=== PATIENT | male | born 1965 | race Caucasian/White ===

== ENCOUNTER → 2018-08-06 | Outpatient (CLI) | payer OTHER ==
[2015-12-04 08:59] VITALS: BP 130/92
[~2018-08-06] MED LIST: LISI2.5T PO; NAPR-514 PO; TAMS0.4C97 PO
--- NOTE | 2018-08-06 08:55 | RAD ---
EXAM: Abdomen sonogram complete. HISTORY: Elevated liver function laboratory values. TECHNIQUE: Sonographic imaging of the abdomen was performed. COMPARISON: None. FINDINGS: The liver is normal in size. There is hepatic steatosis. The common bile duct is minimally dilated for patient age, measuring 6 mm. The gallbladder is unremarkable. The right kidney measures 11.4 cm [id number]. The left kidney measures 12.5 cm [id number]. There is mild right hydronephrosis. There are echogenic foci within the left kidney with posterior shadowing likely due to nonobstructing stones, the largest of which measures 5 mm. The pancreas, spleen, aorta and inferior vena cava are unremarkable. IMPRESSION: 1. Hepatic steatosis. 2. Mild right hydronephrosis. 3. Echogenic foci within the left kidney likely due to nonobstructing stones. 4. Minimally dilated common bile duct for patient age. Electronically signed by: Katherine Bravo MD (08/06/2018 8:52 AM) [id number]
== END | disposition home or self-care (01) ==
LOC: US 07:28
PROVIDERS: ATTEND Family Medicine
DX: K76.0 Fatty (change of) liver, not elsewhere classified (principal); K83.8 Other specified diseases of biliary tract; N13.39 Other hydronephrosis
CPT/HCPCS: 76700

== ENCOUNTER → 2018-10-27 | Outpatient (CLI) | payer OTHER ==
[2015-12-04 08:59] VITALS: BP 130/92
--- NOTE | 2018-10-27 15:46 | RAD ---
Examination: CT of the abdomen pelvis without contrast HISTORY: History of right flank pain, hematuria COMPARISON: 10/27/2015 TECHNIQUE: Axial CT images of the abdomen pelvis were performed without contrast. Coronal sagittal reformats are performed Exposure: One or more of the following individualized dose reduction techniques were utilized for this examination: 1. Automated exposure control 2. Adjustment of the mA and/or kV according to patient size 3. Use of iterative reconstruction technique FINDINGS: The visualized bibasilar lungs are clear. Coronary artery calcifications. No evidence of free air identified in the abdomen. The evaluation of solid organs is limited lack of IV contrast. Evaluation of bowel is limited due to lack of oral contrast. There is mild diffuse decreased attenuation noted throughout the liver likely likely hepatic steatosis. The visualized spleen, adrenals grossly appears unremarkable. The stomach is mildly distended. The visualized pancreas grossly appears unremarkable. The small bowel is nondilated. Feces and gas noted in the colon. Few sigmoid colon diverticulosis identified. The appendix is normal. Numerous bilateral intrarenal collecting system calculi identified with the largest measuring 6 mm in the left kidney. Severe right-sided hydronephrosis and hydroureter identified with few ureteral calculi in the distal right ureter just proximal to the ureterovesical junction with the largest measuring 1 cm. Minimal prominent distal left ureter. No obstructing radiopaque left ureteral calculus. Urinary bladder is mildly distended Mild enlarged prostate gland with central prostatic calcifications Moderate degenerative changes lumbar spine. There is mild compression change of L1 vertebral body similar to prior exam. IMPRESSION: 1. Severe right-sided hydronephrosis and hydroureter identified with few ureteral calculi in the distal right ureter just proximal to the right ureterovesical junction with the largest measuring 1 cm. 2. Numerous bilateral intrarenal collecting system calculi. 3. Hepatic steatosis. Electronically signed by: Dionte Lazo MD (10/27/2018 3:42 PM) [id number]
== END | disposition home or self-care (01) ==
LOC: CT 15:08
PROVIDERS: ATTEND Family Medicine
DX: N23 Unspecified renal colic (principal); I25.10 Atherosclerotic heart disease of native coronary artery without angina pectoris; K31.89 Other diseases of stomach and duodenum; K57.30 Diverticulosis of large intestine without perforation or abscess without bleeding; N13.2 Hydronephrosis with renal and ureteral calculous obstruction; N13.4 Hydroureter; K76.0 Fatty (change of) liver, not elsewhere classified; N40.0 Benign prostatic hyperplasia without lower urinary tract symptoms
CPT/HCPCS: 74176

== ENCOUNTER → 2018-11-02 | Outpatient (CLI) | payer OTHER ==
[2015-12-04 08:59] VITALS: BP 130/92
--- NOTE | 2018-11-02 17:35 | RAD ---
KUB, 11/02/2018: HISTORY: Kidney stone The abdominal gas pattern is unremarkable. The kidneys are partially obscured by overlying bowel. Numerous intrarenal calculi are present, more so on the left. There is a 1 cm irregular radiopacity projected over the right side of the pelvis compatible with the patient's known calculus or cluster of calculi in the distal right ureter delineated on the 10/27/2018 CT study. It is unchanged in location. There is no evidence organomegaly. Moderate scattered degenerative changes are present in the spine. IMPRESSION: 1. Bilateral intrarenal calculi. 2. Unchanged calculus or cluster of calculi in the distal right ureter near the ureterovesical junction. Electronically signed by: Nikolay Mccall MD (11/02/2018 5:31 PM) [facility]
== END | disposition home or self-care (01) ==
LOC: RAD 09:40
PROVIDERS: ATTEND Urology
DX: N20.0 Calculus of kidney (principal)
CPT/HCPCS: 74018

== ENCOUNTER → 2018-11-30 | Outpatient (CLI) | payer OTHER ==
[2015-12-04 08:59] VITALS: BP 130/92
--- NOTE | 2018-11-30 12:29 | RAD ---
KUB, 11/30/2018: HISTORY: Right-sided kidney stone Comparison is made to a study from 11/02/2018. Multiple bilateral intrarenal calculi are again visualized, more numerous on the left. There is an unchanged 1 cm coarse calcification projected over the right side of the lower pelvis which has been thought to represent a calculus or cluster of calculi lodged in the distal right ureter near the ureterovesical junction. There are several other lower pelvic calcifications probably represent a combination of phleboliths and prostatic calcifications. The abdominal gas pattern is unremarkable. IMPRESSION: No significant change since 11/02/2018. Electronically signed by: Nikolay Mccall MD (11/30/2018 12:25 PM) [facility]
== END | disposition home or self-care (01) ==
LOC: RAD 09:13
PROVIDERS: ATTEND Urology
DX: N20.2 Calculus of kidney with calculus of ureter (principal)
CPT/HCPCS: 74018

== ENCOUNTER → 2019-08-11 | Outpatient (CLI) | payer OTHER ==
[2015-12-04 08:59] VITALS: BP 130/92
--- NOTE | 2019-08-11 10:43 | RAD ---
EXAM: Abdomen sonogram. HISTORY: Abnormal liver function laboratory values. TECHNIQUE: Sonographic imaging of the abdomen was performed. COMPARISON: CT dated 10/27/2018. FINDINGS: The liver is normal in size. There is hepatic steatosis. No focal hepatic lesion is seen. The common bile duct is normal in caliber. The gallbladder, pancreas, spleen, aorta, inferior vena cava and kidneys are unremarkable. IMPRESSION: Hepatic steatosis. Electronically signed by: Katherine Bravo MD (08/11/2019 10:41 AM) [facility]
== END | disposition home or self-care (01) ==
LOC: US 09:20
PROVIDERS: ATTEND Internal Medicine Gastroenterology
DX: K76.0 Fatty (change of) liver, not elsewhere classified (principal)
CPT/HCPCS: 76700

== ENCOUNTER → 2020-10-27 | Outpatient (CLI) | payer OTHER ==
[2015-12-04 08:59] VITALS: BP 130/92
--- NOTE | 2020-10-27 08:36 | RAD ---
EXAM: Abdomen and pelvis CT without intravenous contrast. HISTORY: Pain and hematuria. TECHNIQUE: Computed tomographic images of the abdomen and pelvis were obtained without contrast. Mult iplanar reformatting was performed. *One or more of the following individualized dose reduction techniques were utilized for this examina tion: 1. Automated exposure control. 2. Adjustment of the mA and/or kV according to patient size. 3. Use of iterative reconstruction technique. COMPARISON: 10/27/2018. FINDINGS: Evaluation of the lower thorax demonstrates no infiltrate or pleural effusion. There are mu ltiple chronic rib fractures. There is lingular atelectasis or scarring. There is hepatomegaly and he patic steatosis. The gallbladder and pancreas are unremarkable. There is a splenule adjacent to an ot herwise unremarkable spleen. The adrenal glands are unremarkable. There are multiple enlarged lymph n odes within the geo hepatis, largest which measures 2.2 cm in long axis. There is a prominent renal collecting system without tonya hydronephrosis. There is dilatation of the mid to distal left ureter possibly due to peristalsis. There are multiple nonobstructing bilateral r enal stones, the largest of which measures 7 mm within the mid zone of the left kidney. No ureteral o r bladder stone is seen. There is no appendicitis. There is colonic diverticulosis. There is no evidence of diverticulitis. Th ere are calcifications within a prominent prostate. There is aortic and aortic branch vessel atherosc lerosis. There is a small fat-containing left inguinal hernia. There is a moderate chronic L4 garry jennifer fracture. There is no acute or suspicious osseous lesion. IMPRESSION: 1. Extensive bilateral nephrolithiasis. There is no tonya hydronephrosis or evidence of an obstructin g renal or ureteral stone. 2. Thyromegaly and hepatic steatosis. 3. Enlarged periportal lymph nodes, stable compared to the prior study and likely reactive given the setting of hepatic steatosis. 4. Colonic diverticulosis. Electronically signed by: Katherine Bravo MD (10/27/2020 8:33 AM) [id number]
== END ==
LOC: CT 07:43
PROVIDERS: ATTEND Family Medicine
DX: K57.30 Diverticulosis of large intestine without perforation or abscess without bleeding (principal); K40.90 Unilateral inguinal hernia, without obstruction or gangrene, not specified as recurrent; E04.9 Nontoxic goiter, unspecified; K76.0 Fatty (change of) liver, not elsewhere classified; S32.040A Wedge compression fracture of fourth lumbar vertebra, initial encounter for closed fracture; N20.0 Calculus of kidney; Z87.442 Personal history of urinary calculi; X58.XXXA Exposure to other specified factors, initial encounter; Y93.89 Activity, other specified; Y92.89 Other specified places as the place of occurrence of the external cause; Y99.8 Other external cause status
CPT/HCPCS: 74176

== ENCOUNTER → 2020-11-24 | Outpatient (CLI) | payer OTHER ==
[2015-12-04 08:59] VITALS: BP 130/92
[~2020-11-24] MED LIST changes: +CONTRAST GIVEN. MC PRN; +IOHEXOL 350 MG/ML 100 ML VIAL. IV ONE
--- NOTE | 2020-11-24 14:44 | RAD ---
Exam: CT abdomen/pelvis without and with intravenous contrast Indication: Left flank pain, left renal stone, history of lithotripsy Comparison: CT abdomen pelvis 10/27/2020 Technique: Helical CT imaging performed of the abdomen and pelvis before and after the use of intrave nous contrast. 100 mL Omnipaque 350 administered. Delayed phase also acquired. Sagittal and coronal r eformats were obtained. One or more of the following individualized dose reduction techniques were utilized for this examinat ion: 1. Automated exposure control 2. Adjustment of the mA and/or kV according to patient size 3. Use of iterative reconstruction technique. Findings: Inherently limited evaluation without intravenous contrast. Lower chest: Lung bases are clear. Heart is normal in size. Liver: Mild hepatic steatosis. Gallbladder/Biliary Tree: Normal. Pancreas: Normal. Spleen: Normal. Adrenal Glands: Normal. Kidneys/Ureters/Bladder: Kidneys are normal in size. Bilateral nephrolithiasis is redemonstrate with multiple calculi in the renal papillae and extending into some of the minor calyces. Unchanged mild p elviectasis and moderate left and mild ureteral dilation, greatest distally. No obstructing stone or mass identified. The kidneys enhance symmetrically. The bladder is partially distended with contrast without evidence of mass. Reproductive Organs: There are calcifications in the prostate gland. Stomach, small bowel, and colon: Stomach and small bowel are normal. There is colonic diverticulosis, greatest in the sigmoid colon. Vasculature: Abdominal aorta is normal in caliber. Lymph Nodes: Enlarged periportal lymph nodes measuring up to 1.4 cm short axis are unchanged. Peritoneum and retroperitoneum: No free fluid or free air. Bones: Unchanged old L4 compression fracture with moderate height loss. No acute osseous abnormality. Impression: 1. Unchanged nonobstructing bilateral nephrolithiasis. Unchanged mild pelviectasis and ureteral dila tion without evidence of obstruction. 2. Colonic diverticulosis. 3. Hepatic steatosis. Unchanged mildly enlarged periportal lymph nodes. Electronically signed by: Yesika Dee MD (11/24/2020 2:42 PM) [id number]
== END ==
LOC: CT 08:15
PROVIDERS: ATTEND Specialist
DX: N20.2 Calculus of kidney with calculus of ureter (principal); K57.30 Diverticulosis of large intestine without perforation or abscess without bleeding; K76.0 Fatty (change of) liver, not elsewhere classified; R59.9 Enlarged lymph nodes, unspecified
CPT/HCPCS: 74178; Q9967

== ENCOUNTER → 2021-08-07 | Outpatient (CLI) | payer OTHER ==
[2015-12-04 08:59] VITALS: BP 130/92
[~2021-08-07] MED LIST changes: -CONTRAST GIVEN. MC PRN; -IOHEXOL 350 MG/ML 100 ML VIAL. IV ONE; -LISI2.5T PO; +LISI2.5T12 PO
--- NOTE | 2021-08-07 09:14 | RAD ---
XR CHEST 2V History: Reason: SHORTNESS OF BREATH / Spl. Instructions: / History: Comparison: None. Findings: Low lung volumes. Mild linear left basilar opacities. No pleural effusion. No pneumothorax. Chronic r ight rib fractures. Normal heart size. Impression: 1. Low lung volumes with mild left basilar linear opacities, likely atelectasis. Electronically signed by: Andrews Marc DO (08/07/2021 9:12 AM) [id number]
== END ==
LOC: RAD 08:19
PROVIDERS: ATTEND Family Medicine
DX: S22.31XA Fracture of one rib, right side, initial encounter for closed fracture (principal); X58.XXXA Exposure to other specified factors, initial encounter; Y93.89 Activity, other specified; Y92.89 Other specified places as the place of occurrence of the external cause; Y99.8 Other external cause status
CPT/HCPCS: 71046